=== PATIENT | male | born 1960 | race Caucasian/White ===

== ENCOUNTER 2018-04-20 18:10 | Emergency (ER) | payer BC ==
[~2018-04-20] VITALS: Ht 172.7 cm; Wt 90.8 kg
[2018-04-20 18:23] VITALS: BP 126/77
[2018-04-20] MEDS ORDERED: sulfamethoxazole/trimethoprim DS (800/160mg) tablet PO ONE (18:40)
[2018-04-20] MEDS ORDERED: SULF1TAB49 PO (18:40)
[2018-04-20] MEDS ORDERED: TETanus/Pertussis (Acell)/Diphther VAC/PF (Tdap-Adult) 0.5ml syringe IM ONE (18:55)
== END 2018-04-20 18:49 | disposition home or self-care (01) ==
LOC: ER 18:11
DX: M70.21 Olecranon bursitis, right elbow (principal); L02.413 Cutaneous abscess of right upper limb; Z79.899 Other long term (current) drug therapy; Y93.89 Activity, other specified
CPT/HCPCS: 20605; 90471; 90715; 99283; 99284

== ENCOUNTER 2018-04-25 16:53 | Emergency (ER) | payer BC ==
[~2018-04-25] VITALS: Ht 172.7 cm; Wt 90.0 kg
[~2018-04-25 16:53] MED LIST: SULF1TAB49 PO
[2018-04-25 17:15] VITALS: BP 132/85
[2018-04-25 19:38] LABS: BASOPHILS # (AUTO) 0.1 X10'3 (0-0.2); BASOPHILS % (AUTO) 0.9 % (0-1); EOSINOPHILS # (AUTO) 0.3 X10'3 (0-0.9); EOSINOPHILS % (AUTO) 2.4 % (0-6); HEMATOCRIT 48.1 % (42.0-52.0); HEMOGLOBIN 16.5 g/dl (14.0-17.9); LYMPHOCYTES # (AUTO) 1.2 X10'3 (1.1-4.8); LYMPHOCYTES % (AUTO) 11.1 % (21-51); MEAN CORPUSCULAR HEMOGLOBIN 31.9 PG (27.0-31.0); MEAN CORPUSCULAR HGB CONC 34.4 g/dL (33.0-36.5); MEAN CORPUSCULAR VOLUME 92.8 FL (78-98); MEAN PLATELET VOLUME 8.4 FL (7.4-10.4); MONOCYTES # (AUTO) 0.9 X10'3 (0-0.9); MONOCYTES % (AUTO) 8.7 % (2-12); NEUTROPHILS # (AUTO) 8.4 X10'3 (1.8-7.7); NEUTROPHILS % (AUTO) 76.9 % (42-75); PLATELET COUNT 377 X10'3 (140-440); RED BLOOD COUNT 5.18 X10'6 (4.70-6.10); RED CELL DISTRIBUTION WIDTH 12.6 % (11.5-14.5); WHITE BLOOD COUNT 10.9 X10'3 (4.5-11.0)
[2018-04-25 19:46] LABS: ALBUMIN 3.9 G/DL (3.4-5.0); ANION GAP 10 (8-16); BLOOD UREA NITROGEN 20 MG/DL (7-18); C-REACTIVE PROTEIN 3.41 MG/DL (0.0-0.5); CALCIUM 9.4 MG/DL (8.5-10.1); CHLORIDE 98 MMOL/L (99-107); CREATININE 1.43 MG/DL (0.60-1.10); GLUCOSE 87 MG/DL (70-104); SODIUM 136 MMOL/L (135-145); eGFR 51 ML/MIN
--- NOTE | 2018-04-25 20:12 | NUR ---
[facility] CALLED BACK & STATED THEY WOULD ARRIVE "IN A FEW"
[2018-04-25] MEDS ORDERED: dexamethasone sod phosphate 10mg/ml inj PO STA (21:10)
== END 2018-04-25 21:31 | disposition home or self-care (01) ==
LOC: ER 16:54
DX: L03.113 Cellulitis of right upper limb (principal); Z79.899 Other long term (current) drug therapy
CPT/HCPCS: 36415; 80048; 83605; 84145; 84550; 85025; 86140; 93971; 99284; J1100